=== PATIENT | male | born 1945 | race Caucasian/White ===

== ENCOUNTER 2018-01-15 08:15 | Outpatient (CLI) | payer MEDICARE ==
[2018-01-15] MEDS ORDERED: Iopamidol 370 76% 100 ML VIAL ONE (09:00)
[2018-01-15 09:42] LABS: Anion Gap 12 mmol/L (10-20); BUN (Urea Nitrogen) 19 mg/dL (8.4-25.7); Calc. Creatinine Clearance 0 mL/min (70-130); Calcium 9.2 mg/dL (7.8-10.44); Carbon Dioxide 27 mmol/L (23-31); Chloride 107 mmol/L (98-107); Estimated GFR-MDRD 75; Glucose 113 mg/dL (83-110); Potassium 4.7 mmol/L (3.5-5.1); Sodium 141 mmol/L (136-145)
--- NOTE | 2018-01-15 11:32 | CT ---
CT ABDOMEN AND PELVIS WITHOUT AND WITH CONTRAST: Comparison: None. History: Microscopic hematuria. Technique: Multiple contiguous axial images were obtained in a CT of the abdomen and pelvis without a nd with IV contrast. Coronal reformats were performed. Post contrast images were obtained in nephrogr aphic and expiratory phases. FINDINGS: The patient is status post cholecystectomy. The liver, adrenal glands, spleen, and pancreas are unrem arkable. There are hypodensities in the bilateral kidneys measuring up to 2.5 cm in size which repres ent cysts. No free air, free fluid, or stranding changes are seen in the abdomen or pelvis. There are scattered diverticula in the colon. The small bowel is unremarkable. No abdominal or pelvic lymphadenopathy is seen. No calcifications are seen in the kidney, either ureter, or descending urinary bladder. Both ureters are normal in appearance without filling defects. The urinary bladder is unremarkable. The prostate i s enlarged. No abdominal or pelvic lymphadenopathy are seen. Atherosclerotic calcifications are seen in the aorta . Degenerative changes are seen in the spine. The visualized inferior thorax and abdominal wall soft ti ssues are unremarkable. IMPRESSION: 1. Bilateral renal cysts. 2. Diverticulosis. 3. Prostate enlargement. POS: [facility]
== END 2018-01-15 08:16 | disposition home or self-care (01) ==
LOC: SCSCT 08:15
PROVIDERS: ATTEND Urology
DX: N40.1 Benign prostatic hyperplasia with lower urinary tract symptoms (principal); R31.29 Other microscopic hematuria; N28.1 Cyst of kidney, acquired; K57.30 Diverticulosis of large intestine without perforation or abscess without bleeding
CPT/HCPCS: 36415; 74178; 80048

== ENCOUNTER 2021-03-31 08:27 | Outpatient (CLI) | payer MEDICARE | END 2021-03-31 08:28 | disposition home or self-care (01) | LOC: SCSMRI 08:27 | PROVIDERS: ATTEND Family Medicine | DX: G44.031 Episodic paroxysmal hemicrania, intractable (principal); R29.898 Other symptoms and signs involving the musculoskeletal system | CPT/HCPCS: 70551 ==

== ENCOUNTER 2022-04-22 10:43 | Outpatient (CLI) | payer MEDICARE ==
[2022-04-22 11:40] LABS: Hemoglobin 15.4 g/dL (13.5-17.5); Mean Corpuscular HGB CONC 33.4 g/dL (32.0-36.0); Mean Corpuscular Hemoglobin 30.8 pg (27.0-33.0); Mean Corpuscular Volume 92.2 fl (81.2-95.1); Platelet Count 165 10x3/uL (150-450); RBC Distribution Width 13.2 % (11.5-14.5); White Blood Cell (WBC) Count 6.6 10x3/uL (3.5-10.5)
[2022-04-22 11:50] LABS: PTT 27.1 sec (22.0-33.0); Prothrombin Time 10.8 sec (9.5-12.1)
== END 2022-04-22 10:44 | disposition home or self-care (01) ==
LOC: LABBT 10:43
PROVIDERS: ATTEND Neurological Surgery
DX: Z01.812 Encounter for preprocedural laboratory examination (principal)
CPT/HCPCS: 85027; 85610; 85730

== ENCOUNTER 2022-04-27 09:44 | Day surgery (SDC) | payer MEDICARE ==
[2022-04-26 08:22] VITALS: BMI 31.5
[2022-04-27] MEDS ORDERED: CEFAZOLIN 2 GM VIAL ONE (10:56)
[2022-04-27] MEDS ORDERED: Sodium Chloride 0.9% 100 ML ONE (10:56)
[2022-04-27] MEDS ORDERED: Neomycin-Polymyxin 1 ML AMP ONE (12:04)
[2022-04-27] MEDS ORDERED: Thrombin 5000 UNITS/5 ML VIAL ONE (12:04)
[2022-04-27] MEDS ORDERED: Fentanyl 250 MCG/5 ML VIAL ONE (13:07)
[2022-04-27] MEDS ORDERED: Midazolam HCl 2 mg/2 ml Vial ONE (13:19)
[2022-04-27] MEDS ORDERED: Famotidine/PF 20 mg/2ml Vial ONE (13:27)
[2022-04-27] MEDS ORDERED: SUGAMMADEX SODIUM 200 MG/2 ML VIAL ONE (13:27)
[2022-04-27] MEDS ORDERED: Lidocaine 1% PF 5 ML VIAL ONE (13:29)
[2022-04-27] MEDS ORDERED: ePHEDrine 50 MG/ML VIAL ONE (13:29)
[2022-04-27] MEDS ORDERED: Ondansetron PF 4 MG/2 ML Vial ONE (13:29)
[2022-04-27] MEDS ORDERED: PROPOFOL 200 MG/20 ML VIAL ONE (13:29)
[2022-04-27] MEDS ORDERED: Rocuronium Bromide 10 MG/ML (10ML VIAL) ONE (13:29)
[2022-04-27] MEDS ORDERED: PHENYLEPHRINE-NS 100 MCG/ML 10 ML SYRINGE ONE (13:29)
[2022-04-27] MEDS ORDERED: NEOSTIGMINE 3 MG/3 ML SYR 3 MG/3 ML SYRINGE ONE (13:29)
[2022-04-27] MEDS ORDERED: Glycopyrrolate 0.2 MG/ML 5 ML SYRINGE ONE (13:29)
== END 2022-04-27 18:15 | disposition home or self-care (01) ==
LOC: SDC 09:44
PROVIDERS: ATTEND Neurological Surgery
PROC: 0RG20A0 Fusion of 2 or more Cervical Vertebral Joints with Interbody Fusion Device, Anterior Approach, Anterior Column, Open Approach (ICD-10-PCS; principal; 2022-04-27)
DX: M50.122 Cervical disc disorder at C5-C6 level with radiculopathy (principal); M50.123 Cervical disc disorder at C6-C7 level with radiculopathy; M50.022 Cervical disc disorder at C5-C6 level with myelopathy; M50.023 Cervical disc disorder at C6-C7 level with myelopathy; M48.02 Spinal stenosis, cervical region; I10 Essential (primary) hypertension; E78.00 Pure hypercholesterolemia, unspecified; N40.0 Benign prostatic hyperplasia without lower urinary tract symptoms; Z79.82 Long term (current) use of aspirin; Z79.899 Other long term (current) drug therapy; Z88.2 Allergy status to sulfonamides
CPT/HCPCS: 20930; 20936; 22551; 22552; 22845; 22853 ×2; C1713 ×5; J2250; J2405; J2704; J3010; J3490; S0028

== ENCOUNTER 2022-06-21 11:52 | Outpatient (CLI) | payer MEDICARE | END 2022-06-21 11:53 | disposition home or self-care (01) | LOC: SCSRAD 11:52 | PROVIDERS: ATTEND Neurological Surgery | DX: M47.22 Other spondylosis with radiculopathy, cervical region (principal); Z98.1 Arthrodesis status | CPT/HCPCS: 72040 ==